=== PATIENT | female | born 1975 | race Caucasian/White ===

== ENCOUNTER 2025-04-21 07:53 | Day surgery (SDC) | payer OTHER ==
[~2025-04-21] VITALS: Ht 165.1 cm; Wt 98.0 kg
[~2025-04-21 07:53] MED LIST: CEFAZOLIN SODIUM 2 GM in SODIUM CHLORIDE 0.9% 100 ML IV SCH; ELINEST1 EACH PO; HEParin SOD (PORCINE) 5,000 UNIT/ML SDV SUB-Q SCH; IBLOOD GLUCOSE TEST STRIP 1 EA TEST VI PRN; LACTATED RINGER'S 1,000 ML IV SCH; LIDOCAINE HCL 1% 5 ML SDV INJ ONE; TOLTERODINE TART1 MG PO
[2025-04-21 08:10] VITALS: BP 121/57
[2025-04-21] MEDS ORDERED: IBUPROFEN200 M1 PO (08:12)
[2025-04-21] MEDS ORDERED: MAGNESIUM100 MG PO (08:13)
[2025-04-21] MEDS ORDERED: IRON236 MG PO (08:14)
[2025-04-21] MEDS ORDERED: LIDOCAINE HCL 2% 5 ML SDV ONE ×2 (10:21→11:58)
[2025-04-21] MEDS ORDERED: fentaNYL citrate 100 MCG/2 ML VIAL ONE (10:21)
[2025-04-21] MEDS ORDERED: MAGNESIUM SULFATE 1 GM/2 ML VIAL ONE ×2 (10:21→11:58)
[2025-04-21] MEDS ORDERED: KETAMINE in NS 50 MG/5 ML SYR ONE (10:21)
[2025-04-21] MEDS ORDERED: ACETAMINOPHEN 1,000 MG/100 ML VIAL ONE (10:21)
[2025-04-21] MEDS ORDERED: SODIUM CHLORIDE 0.9% 40 ML IV ONE ×2 (10:21→11:58)
[2025-04-21] MEDS ORDERED: DEXAMETHASONE SOD PHOS 4 MG/ML VIAL ONE (10:21)
[2025-04-21] MEDS ORDERED: ROCURONIUM BROMIDE 50 MG/5 ML SYR ONE ×2 (10:21→10:40)
[2025-04-21] MEDS ORDERED: PHENYLEPHRINE HCL IN 0.9% NACL 1 MG/10 ML SYR ONE (10:57)
[2025-04-21] MEDS ORDERED: NALOXONE HCL 0.4 MG SYR IV PRN ×2 (11:45→13:30)
[2025-04-21] MEDS ORDERED: fentaNYL citrate 50 MCG/ML SDV IV PRN (11:45)
[2025-04-21] MEDS ORDERED: HYDROmorphone HCL 1 MG/ML SYR IV PRN (11:45)
[2025-04-21] MEDS ORDERED: KETOROLAC TROMETHAMINE 30 MG/ML VIAL IV PRN (11:45)
[2025-04-21] MEDS ORDERED: IBLOOD GLUCOSE TEST STRIP 1 EA TEST VI PRN (11:45)
--- NOTE | 2025-04-21 13:05 | NUR ---
04/21/25 1305 Sol Segal 1259: PT ARRIVES TO PACU NON AROUSAL. PT CONNECTED TO MONITORS. REPORT RECEIVED FROM HORTICULTURAL FARMWORKER AND WASH DRILLER.
[2025-04-21] MEDS ORDERED: PROCHLORPERAZINE EDISYLATE 10 MG/2 ML VIAL IV PRN (13:30)
[2025-04-21] MEDS ORDERED: OXYCODONE/APAP 5/325 TAB PO PRN (13:30)
[2025-04-21] MEDS ORDERED: FAMOTIDINE 20 MG/ 2 ML VIAL IV PRN (13:30)
[2025-04-21] MEDS ORDERED: MAGNESIUM HYDROXIDE/AL HYDROX 30 ML CUP PO PRN (13:30)
[2025-04-21] MEDS ORDERED: MORPHINE SULFATE 10 MG/ML VIAL IV PRN (13:30)
[2025-04-21] MEDS ORDERED: SIMETHICONE 80 MG CHEW PO PRN (13:30)
[2025-04-21 13:57] VITALS: BP 108/62
--- NOTE | 2025-04-21 14:35 | NUR ---
ASSISTED TO BR VOIDES 25 MLS YELL BRIGHT URINE RETURNED TO BED. O2 SAT 97% O2 OFF.
[2025-04-21 14:44] VITALS: BP 109/50
--- NOTE | 2025-04-21 14:47 | NUR ---
1355- PT ARRIVES FROM PACU. BEDSIDE REPORT RECIEVED. LR INFUSING. PT REPORTS 3/10 PAIN AND NO NAUSEA. SURGICAL SITES ASSESSED. BED IS LOCKED IN THE LOWEST POSITION. CARNEY CATH REMOVED AT THIS TIME. VSS. DISCHARGE CRITERIA DISCUSSED ADN PT IS UNDERSTANDING. PT IS ON 2L OF O2 AT THIS TIME. 1445-PT CALL LIGHT ANSWERED. PT REPORTS NAUSEA. EMESIS BAG AND ALCOHOL WIPE PROVIDED. NAUSEA MEDICATION GIVEN, SEE EMAR. PT IS ON ROOM AIR. SURGICAL SITES ASSESED. LR INFUSING. PT RESTING WITH EYES CLOSED. HOT PACK PROVIDED PER PT REQUEST.
--- NOTE | 2025-04-21 15:19 | NUR ---
1515- PT IS UP TO THE RESTROOM. PT IS SALINE LOCKED AT THIS TIME. PT WALKS WITH A STEADY AND EVEN GAIT AND REPORTS "THIS SUCKS" WHEN ASKED HOW SHE WAS DOING. PT IS ABLE TO VOID 50 ML OF CLEAR, DARK YELLOW URINE.
[2025-04-21 15:54] VITALS: BP 115/58
--- NOTE | 2025-04-21 16:07 | NUR ---
1602- BLADDER SCAN DONE WITH NO RESIDUAL IN BLADDER AFTER LAST VOID. DR. MARISCAL CALLED AND HE REPORTS THAT SHE CAN BE DISCHARGED. DISCHARGE PAPERWORK AND EDUCATION GIVEN. IV REMOVED. PT DRESSED WITH ASSISTANCE FROM RN. ALL QUESTIONS AND CONCERNS ANSWERED. PT HAS ALL BELONGINGS. PT IS ABLE TO AMBULATE TO HOSPITAL WHEELCHAIR. PT DC'S FROM DAY SURGERY AT THIS TIME BEING PROPELLED BY BRYNN LESTER.
[2025-04-21] MEDS ORDERED: SEVOFLURANE 250 ML BTL INH ONE (16:08)
[2025-04-21] MEDS ORDERED: SIMETHICONE 80 MG CHEW PO SCH (17:00)
== END 2025-04-21 16:02 | disposition home or self-care (01) ==
LOC: OPS 07:53 → DS 08:25 → OPS 09:00
PROVIDERS: ATTEND Obstetrics & Gynecology
PROC: 0UT74ZZ Resection of Bilateral Fallopian Tubes, Percutaneous Endoscopic Approach (ICD-10-PCS; 2025-04-21)
PROC: 0UT94ZZ Resection of Uterus, Percutaneous Endoscopic Approach (ICD-10-PCS; principal; 2025-04-21 09:00)
DX: N80.03 Adenomyosis of the uterus (principal); N93.9 Abnormal uterine and vaginal bleeding, unspecified; N84.0 Polyp of corpus uteri; N94.6 Dysmenorrhea, unspecified; Z88.8 Allergy status to other drugs, medicaments and biological substances
CPT/HCPCS: 00840; 51798; 88307; J0131; J0165; J0688; J0780; J1100; J1644; J1885; J2003; J2405; J2704; J3010; J3475; J3490; J7121